=== PATIENT | male | born 1955 | race Caucasian/White ===

== ENCOUNTER 2016-12-26 06:12 | Day surgery (SDC) | payer MEDICAID ==
[~2016-12-26] VITALS: Ht 172.7 cm; Wt 68.0 kg
[2016-12-26] MEDS ORDERED: LACTATED RINGERS 1,000 ML IV SCH (08:00)
[2016-12-26] MEDS ORDERED: ACET-3161 PO (09:08)
[2016-12-26] MEDS ORDERED: HYDROMORPHONE HCL/PF 2MG/ML CPJ IV PRN (09:30)
[2016-12-26] MEDS ORDERED: ONDANSETRON HCL 4MG/2ML VIAL IV PRN (09:30)
[2016-12-26] MEDS ORDERED: FENTANYL CITRATE/PF 50MCG/ML 2ML VIAL IV PRN (09:30)
[2016-12-26] MEDS ORDERED: LIDOCAINE HCL 1% 20ML VIAL (Pyxis) INJ ONE (09:38)
[2016-12-26] MEDS ORDERED: PROPOFOL 200MG/20ML VIAL IV ONE ×2 (09:38→10:07)
[2016-12-26] MEDS ORDERED: MIDAZOLAM HCL 2 MG/2 ML VIAL ONE (09:39)
[2016-12-26] MEDS ORDERED: GENTAMICIN SULF 40MG/ML 2ML VIAL ONE (10:06)
[2016-12-26] MEDS ORDERED: ONDANSETRON HCL 4MG/2ML VIAL ONE (10:13)
[2016-12-26] MEDS ORDERED: METOCLOPRAMIDE HCL 10MG/2ML VIAL ONE (10:14)
[2016-12-26 13:25] VITALS: BP 112/68
== END 2016-12-27 13:40 | disposition home or self-care (01) ==
LOC: OR 06:12
PROVIDERS: ATTEND Urology
DX: N40.0 Benign prostatic hyperplasia without lower urinary tract symptoms (principal); Z85.828 Personal history of other malignant neoplasm of skin
CPT/HCPCS: 52450; J1580; J2250; J2405; J2765; J3010; J3490; J7120; J2704